=== PATIENT | female | born 1970 | race African-American/Black ===

== ENCOUNTER 2020-05-11 04:28 | Emergency (ER) | payer MEDICARE, OTHER ==
[~2020-05-11] VITALS: Ht 152.4 cm; Wt 77.0 kg
[2020-05-11 04:28] VITALS: BP 166/131
--- NOTE | 2020-05-11 04:53 | PHYS DOC ---
Past History Past Medical History: CHF, Hypertension, Renal Disease, Stroke, UTI Past Surgical History: No Surgical History Smoking: Non-smoker Alcohol Use: None Drug Use: None General Adult EDM: Chief Complaint: ABDOMINAL PAIN HPI: HPI: 49-year-old female presents with 1 week history of dysuria. Patient currently being treated by PCP for urinary tract infection. Patient believes medication she is currently on is Cipro. Reports now with suprapubic pain. Patient does report some pain to right flank. Denies trauma. Denies rash. Denies nausea or vomiting. Patient reports awaking this morning feeling worse and therefore presents to the ER. Review of Systems: Review of Systems: Constitutional: Reports fever and chills Eyes: Denies redness or eye pain HENT: Denies nasal congestion or sore throat Respiratory: Denies cough or shortness of breath Cardiovascular: Denies chest pain or palpitations GI: Reports suprapubic pain; denies nausea or vomiting : Reports dysuria; denies hematuria Musculoskeletal: Reports right flank pain; denies joint pain Integument: Denies rash or skin lesions Neurologic: Denies headache, focal weakness or sensory changes Complete systems were reviewed and found to be within normal limits, except as documented in this note. Current Medications: Current Meds: Current Medications Medications (Trade) Dose Ordered Sig/[facility] Start Time Stop Time Status Last Admin Dose Admin Acetaminophen (Tylenol) 500 mg 1X ONCE 05/11/20 04:45 05/11/20 04:46 UNV Sodium Chloride 1,000 ml @ 1,000 mls/hr 1X ONCE 05/11/20 04:45 05/11/20 05:44 UNV Physical Exam: PE: Constitutional: Well developed, well nourished, no acute distress, non-toxic appearance HENT: Normocephalic, atraumatic Eyes: Conjunctiva normal, no discharge Neck: Normal range of motion, supple, no meningeal signs Cardiovascular: Tachycardia, peripheral pulses intact Lungs & Thorax: No respiratory distress, equal chest rise and fall, tachypnea Abdomen: Soft, mild suprapubic tenderness, no guarding/rebound tenderness/distention Skin: Warm, dry, no erythema, no rash Back: No tenderness, no CVA tenderness Extremities: No tenderness, ROM intact, no edema Neurologic: Alert and oriented X 3, no focal deficits noted Psychologic: Affect normal, judgment normal Current Patient Data: Vital Signs: Vital Signs Date Time Temp Pulse Resp B/P (MAP) Pulse Ox O2 Delivery O2 Flow Rate FiO2 05/11/20 04:28 100.9 125 26 166/131 (143) 98 Room Air EKG: EKG: [] Radiology/Procedures: Radiology/Procedures: PROCEDURE: CT ABDOMEN PELVIS WO CONTRAST CT scan of the abdomen and pelvis without contrast 05/11/2020 CLINICAL HISTORY: Right flank pain. TECHNIQUE: Unenhanced, contiguous, 3 mm axial sections were obtained through the abdomen and pelvis. One or more of the following individualized dose reduction techniques were utilized for this study: 1. Automated exposure control. 2. Adjustment of the mA and/or kV according to patient size. 3. Use of iterative reconstruction technique. FINDINGS: Images through the lung bases demonstrate minimal dependent subsegmental atelectasis bilaterally. There is mild to moderate cardiomegaly. A small pericardial effusion is seen. The liver, spleen, pancreas, and adrenal glands are within normal limits. A 3 mm nonobstructing calculus is seen involving the lower pole of the left kidney. No focal abnormality of the right kidney is seen. No ureteral calculus is noted. There is no evidence of obstruction of either collecting system. Atherosclerotic calcification abdominal aorta and its branches is seen. The abdominal aorta tapers normally. A moderate amount stool seen throughout the colon. The appendix is well-visualized and is within normal limits. Images through the pelvis demonstrate the urinary bladder distended with urine. A rounded mass projects from the posterior aspect of the body/fundus of the uterus. This measures 4.6 cm in size. It likely represents a fibroid. Calcifications are seen within the pelvis consistent with phleboliths. No adnexal mass is noted. No free fluid is seen. Minimal S-shaped curvature of the thoracolumbar spine is seen. IMPRESSION: No acute abnormality is seen. Electronically signed by: Wander Vincent MD (05/11/2020 6:18 AM) [id number] Course & Med Decision Making: Course & Med Decision Making Pertinent Lab studies reviewed. (See chart for details) Patient presents with HPI and physical exam concerning for acute pyelonephritis. Tachycardia, tachypnea, and fever noted. SIRS criteria met. Fever addressed. IV fluid hydration provided. Labs obtained and posted to chart. UA with signs of infection vs contamination. Given patient's symptoms empiric antibiotic initiated. Symptomatic treatment also provided with pyridium. WBC and lactic acid WNL. CT abd/pelvis without acute process. Patient stable for discharge with outpatient follow-up with PCP. Discussed findings and plan with patient, who acknowledges understanding and agreement. Yessica Disclaimer: Yessica Disclaimer: This electronic medical record was generated, in whole or in part, using a voice recognition dictation system. Departure Departure: Impression: Primary Impression: Pyelonephritis Additional Impression: Fever Qualified Codes: R50.9 - Fever, unspecified Disposition: HOME/RESIDENCE PRIOR TO ADM Condition: STABLE Referrals: RYAN JAMISON MD (PCP) Patient Instructions: Fever, Adult, [id number], Pyelonephritis, Adult, [id number] Additional Instructions: Please discontinue previously prescribed antibiotic. Scripts Cephalexin (KEFLEX) 500 Mg Capsule 1 CAP PO TID for UTI for 7 Days, #21 CAP 0 Refills Prov: JACKLYN ONEILL DO 05/11/20 Phenazopyridine Hcl (PYRIDIUM) 200 Mg Tablet 200 MG PO Q8HRS for urinary tract infection, #6 TAB Prov: JACKLYN ONEILL DO 05/11/20 Justification of Admission: Justification of Admission: Justification of Admission Dx: N/A JACKLYN ONEILL DO May 11, 2020 04:53
[2020-05-11 04:55] LABS: BASO % 0 % (0-3); EOS # 0.6 x10^3/uL (0.0-0.7); EOS % 8 % (0-3); HEMATOCRIT 38.6 % (36.0-47.0); HEMOGLOBIN 13.1 g/dL (12.0-15.5); LYMPH # 0.9 x10^3/uL (1.0-4.8); LYMPH % 12 % (24-48); MEAN CORPUSCULAR HEMOGLOBIN 28 pg (25-35); MEAN CORPUSCULAR HGB CONC 34 g/dL (31-37); MEAN CORPUSCULAR VOLUME 83 fL (79-100); MONO # 0.9 x10^3/uL (0.0-1.1); MONO % 12 % (0-9); NEUT # 5.5 x10^3uL (1.8-7.7); NEUT % 69 % (31-73); PLATELET COUNT 315 x10^3/uL (140-400); RED BLOOD COUNT 4.63 x10^6/uL (3.50-5.40); RED CELL DISTRIBUTION WIDTH 15.7 % (11.5-14.5)
[2020-05-11 04:59] LABS: BACTERIA,URINE MOD /HPF (0-FEW); BILIRUBIN,URINE NEG (NEG); CLARITY,URINE HAZY; COLOR,URINE YELLOW; GLUCOSE,URINE NEG (NEG); NITRITE,URINE NEG (NEG); SQUAMOUS EPITHELIAL CELL,UR MOD /LPF; UROBILINOGEN,URINE 0.2 mg/dL (0.2 mg/dL)
[2020-05-11 05:00] LABS: CALCIUM 8.9 mg/dL (8.5-10.1); CREATININE 1.7 mg/dL (0.6-1.0); GFR 31.9; POTASSIUM 3.9 mmol/L (3.5-5.1)
[2020-05-11 05:00] LABS: RBC,URINE OCC /HPF (0-2)
[2020-05-11] MEDS ORDERED: IV NORMAL SALINE 1,000ML 1,000 ML IV ONE (05:00)
[2020-05-11] MEDS ORDERED: ACETAMINOPHEN 500 MG TABLET PO ONE (05:00)
[2020-05-11 05:06] LABS: ALBUMIN 3.5 g/dL (3.4-5.0); ALBUMIN/GLOBULIN RATIO 0.8 (1.0-1.7); MAGNESIUM 1.8 mg/dL (1.8-2.4); TOTAL BILIRUBIN 0.5 mg/dL (0.2-1.0); TOTAL PROTEIN 7.9 g/dL (6.4-8.2)
[2020-05-11] MEDS ORDERED: CEPH-264 PO (05:11)
[2020-05-11] MEDS ORDERED: PHEN-318 PO (05:11)
[2020-05-11] MEDS ORDERED: PHENAZOPYRIDINE 200 MG TABLET. PO ONE (05:30)
--- NOTE | 2020-05-11 06:21 | RAD ---
CT scan of the abdomen and pelvis without contrast 05/11/2020 CLINICAL HISTORY: Right flank pain. TECHNIQUE: Unenhanced, contiguous, 3 mm axial sections were obtained through the abdomen and pelvis. One or more of the following individualized dose reduction techniques were utilized for this study: 1. Automated exposure control. 2. Adjustment of the mA and/or kV according to patient size. 3. Use of iterative reconstruction technique. FINDINGS: Images through the lung bases demonstrate minimal dependent subsegmental atelectasis bilaterally. There is mild to moderate cardiomegaly. A small pericardial effusion is seen. The liver, spleen, pancreas, and adrenal glands are within normal limits. A 3 mm nonobstructing calculus is seen involving the lower pole of the left kidney. No focal abnormality of the right kidney is seen. No ureteral calculus is noted. There is no evidence of obstruction of either collecting system. Atherosclerotic calcification abdominal aorta and its branches is seen. The abdominal aorta tapers normally. A moderate amount stool seen throughout the colon. The appendix is well-visualized and is within normal limits. Images through the pelvis demonstrate the urinary bladder distended with urine. A rounded mass projects from the posterior aspect of the body/fundus of the uterus. This measures 4.6 cm in size. It likely represents a fibroid. Calcifications are seen within the pelvis consistent with phleboliths. No adnexal mass is noted. No free fluid is seen. Minimal S-shaped curvature of the thoracolumbar spine is seen. IMPRESSION: No acute abnormality is seen. Electronically signed by: Wander Vincent MD (05/11/2020 6:18 AM) [id number]
== END 2020-05-11 06:59 | disposition home or self-care (01) ==
LOC: ER 04:28
DX: N12 Tubulo-interstitial nephritis, not specified as acute or chronic (principal); I11.0 Hypertensive heart disease with heart failure; I50.9 Heart failure, unspecified; Z87.440 Personal history of urinary (tract) infections; Z86.73 Personal history of transient ischemic attack (TIA), and cerebral infarction without residual deficits
CPT/HCPCS: 36415; 74176; 80053; 81001; 83605; 83690; 83735; 84702; 85025; 85610; 85730; 96365; 99284; J0696; J7030; 99285-25

== ENCOUNTER 2021-02-13 12:49 | Emergency (ER) | payer MEDICAID, MEDICARE, OTHER ==
[~2021-02-13] VITALS: Ht 152.4 cm; Wt 90.7 kg
[~2021-02-13 12:49] MED LIST: CEPH-264 PO; PHEN-318 PO
--- NOTE | 2021-02-13 13:33 | PHYS DOC ---
Past History Past Medical History: CHF, CVA, High Cholesterol, Hypertension, Renal Disease, Stroke, UTI Past Surgical History: No Surgical History Smoking: Non-smoker Alcohol Use: None Drug Use: None General Adult EDM: Chief Complaint: SHORTNESS OF BREATH HPI: HPI: 50-year-old female presents with shortness of breath. The patient has been having worsening shortness of breath for the last couple of days. In fact she has been having intermittent chest pains and shortness of breath for several weeks, but worse the last 2 days. She denies chest pain at this time. Her shortness of breath is worse with exertion. No history of lung problems. She is not a smoker. Denies fever or chills. She has a history of previous strokes and diagnosis of CHF. She also has diabetes and high blood pressure. Negative COVID-19 test in November, but has not been vaccinated. Review of Systems: Review of Systems: Constitutional: Denies fever or chills Eyes: Denies change in visual acuity HENT: Denies nasal congestion or sore throat Respiratory: Intermittent cough with shortness of breath Cardiovascular: Denies chest pain or edema GI: Denies abdominal pain, nausea, vomiting, bloody stools or diarrhea : Denies dysuria Musculoskeletal: Denies back pain or joint pain Integument: Denies rash Neurologic: Denies headache, focal weakness or sensory changes Endocrine: Denies polyuria or polydipsia Lymphatic: Denies swollen glands Psychiatric: Denies depression or anxiety Allergies: Allergies: Allergies Coded Allergies Type Severity Reaction Last Updated Verified lisinopril Allergy Severe 05/11/20 Yes Physical Exam: PE: Constitutional: Well developed, well nourished, morbidly obese, mild acute distress, non-toxic appearance. [] HENT: Normocephalic, atraumatic, bilateral external ears normal, oropharynx moist, no oral exudates, nose normal. [] Eyes: PERRLA, EOMI, conjunctiva normal, no discharge. [] Neck: Normal range of motion, no tenderness, supple, no stridor. [] Cardiovascular: Heart rate 96, regular rhythm, no murmur [] Lungs & Thorax: Bilateral breath sounds clear to auscultation [] Abdomen: Bowel sounds normal, soft, no tenderness, no masses, no pulsatile masses. [] Skin: Warm, dry, no erythema, no rash. [] Back: No tenderness, no CVA tenderness. [] Extremities: No tenderness, no cyanosis, no clubbing, ROM intact, no edema. [] Neurologic: Alert and oriented X 3, normal motor function, normal sensory function, no focal deficits noted. [] Psychologic: Affect normal, judgement normal, mood normal. [] Current Patient Data: Vital Signs: Vital Signs Date Time Temp Pulse Resp B/P (MAP) Pulse Ox O2 Delivery O2 Flow Rate FiO2 02/13/21 13:04 97.9 96 28 176/110 (132) 96 Room Air EKG: EKG: Sinus rhythm, rate 96, normal axis, no ST elevations or depression, poor R wave progression. [] Radiology/Procedures: Radiology/Procedures: [] Impressions: Single AP view of the chest. Comparison: None. Indication: Shortness of breath Findings: The heart is enlarged. There is no pneumothorax or effusion. Mild interstitial opacities particularly at the lung bases are identified. Impression: 1. Peripheral interstitial opacities are identified with cardiomegaly. Findings suggest CHF or atypical infection. Electronically signed by: Casey Will MD (02/13/2021 1:49 PM) [id number] DICTATED AND SIGNED BY: CASEY WILL MD DATE: 02/13/21 1348 CC: PEYTON ROPER DO; RYAN JAMISON MD ~MTH0 0 Heart Score: C/O Chest Pain: Yes HEART Score for Chest Pain: HEART Score for Chest Pain Response (Comments) Value History Moderately Suspicious 1 ECG Nonspecific Repolarizatio 1 Age >45 - < 65 1 Risk Factors >3 Risk Factors or Hx CAD 2 Troponin >3 x Normal Limit 2 Total 7 Risk Factors: Risk Factors: DM, Current or recent (<one month) smoker, HTN, HLP, family history of CAD, obesity. Risk Scores: Score 0 - 3: 2.5% MACE over next 6 weeks - Discharge Home Score 4 - 6: 20.3% MACE over next 6 weeks - Admit for Clinical Observation Score 7 - 10: 72.7% MACE over next 6 weeks - Early Invasive Strategies Course & Med Decision Making: Course & Med Decision Making Pertinent Labs and Imaging studies reviewed. (See chart for details) Patient has an elevated BUN and creatinine. See labs for more details. Her troponin is 0.206. Her EKG does not show ST elevations. Her chest x-ray is suggestive of CHF. See official read for more details. Patient appears to be having an NSTEMI. I talked with Regi, per the cardiology team and she is advised 100 mg of Lovenox and transferred to [facility]. The patient is in agreement with transfer to [place]. I spoke with Dr. Peck, the hospitalist and he has accepted the patient for transfer. The patient will go by ambulance. 32 minutes of critical care time was spent on this patient exclusive of other billable procedures. [] Dragon Disclaimer: Dragon Disclaimer: This electronic medical record was generated, in whole or in part, using a voice recognition dictation system. Departure Departure: Impression: Primary Impression: NSTEMI (non-ST elevated myocardial infarction) Additional Impression: CHF (congestive heart failure) Qualified Codes: I50.23 - Acute on chronic systolic (congestive) heart failure Disposition: 02 SHORT TERM HOSPITAL Referrals: RYAN JAMISON MD (PCP) PEYTON ROPER DO Feb 13, 2021 13:33
[2021-02-13 13:48] LABS: CALCIUM 9.4 mg/dL (8.5-10.1); CREATININE 1.3 mg/dL (0.6-1.0); GFR 52.5; POTASSIUM 4.1 mmol/L (3.5-5.1)
[2021-02-13 13:49] LABS: BASO # 0.2 x10^3/uL (0.0-0.2); BASO % 3 % (0-3); EOS # 0.2 x10^3/uL (0.0-0.7); EOS % 3 % (0-3); HEMATOCRIT 36.8 % (36.0-47.0); HEMOGLOBIN 12.3 g/dL (12.0-15.5); LYMPH # 2.6 x10^3/uL (1.0-4.8); LYMPH % 33 % (24-48); MEAN CORPUSCULAR HEMOGLOBIN 28 pg (25-35); MEAN CORPUSCULAR HGB CONC 33 g/dL (31-37); MEAN CORPUSCULAR VOLUME 84 fL (79-100); MONO # 0.4 x10^3/uL (0.0-1.1); MONO % 6 % (0-9); NEUT # 4.3 x10^3uL (1.8-7.7); NEUT % 55 % (31-73); PLATELET COUNT 290 x10^3/uL (140-400); RED BLOOD COUNT 4.41 x10^6/uL (3.50-5.40); RED CELL DISTRIBUTION WIDTH 15.8 % (11.5-14.5); WHITE BLOOD COUNT 7.8 x10^3/uL (4.0-11.0)
--- NOTE | 2021-02-13 13:51 | RAD ---
Single AP view of the chest. Comparison: None. Indication: Shortness of breath Findings: The heart is enlarged. There is no pneumothorax or effusion. Mild interstitial opacities particularl y at the lung bases are identified. Impression: 1. Peripheral interstitial opacities are identified with cardiomegaly. Findings suggest CHF or atypic al infection. Electronically signed by: Casey Will MD (02/13/2021 1:49 PM) [id number]
[2021-02-13 14:00] LABS: ALBUMIN 3.3 g/dL (3.4-5.0); ALBUMIN/GLOBULIN RATIO 0.8 (1.0-1.7); TOTAL BILIRUBIN 0.5 mg/dL (0.2-1.0); TOTAL PROTEIN 7.6 g/dL (6.4-8.2)
[2021-02-13] MEDS ORDERED: ASPIRIN CHEWABLE 81 MG TABLET. PO ONE (14:15)
[2021-02-13] MEDS ORDERED: ENOXAPARIN ** NOTE DOSE ** SYRINGE SQ ONE (14:30)
[2021-02-13 14:50] LABS: BACTERIA,URINE 0 /HPF (0-FEW); BILIRUBIN,URINE NEG (NEG); CLARITY,URINE CLEAR; COLOR,URINE YELLOW; GLUCOSE,URINE NEG (NEG); NITRITE,URINE NEG (NEG)
[2021-02-13 14:51] LABS: SQUAMOUS EPITHELIAL CELL,UR MOD /LPF
--- NOTE | 2021-02-13 15:17 | EKG ---
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
[2021-02-13 17:28] VITALS: BP 168/96
== END 2021-02-13 17:56 | disposition short-term general hospital (02) ==
LOC: ER 12:49 → EEVIPCON 12:49 → ER 17:56
DX: I21.4 Non-ST elevation (NSTEMI) myocardial infarction (principal); I10 Essential (primary) hypertension; I50.23 Acute on chronic systolic (congestive) heart failure; E78.00 Pure hypercholesterolemia, unspecified; Z87.440 Personal history of urinary (tract) infections; Z86.73 Personal history of transient ischemic attack (TIA), and cerebral infarction without residual deficits; Z88.8 Allergy status to other drugs, medicaments and biological substances
CPT/HCPCS: 36415; 71045; 80053; 81001; 83880; 84484; 85025; 87086; 93005; 96372; 99291; J1650

== ENCOUNTER 2021-09-23 16:20 | Emergency (ER) | payer MEDICARE ==
[~2021-09-23] VITALS: Ht 152.4 cm; Wt 72.2 kg
--- NOTE | 2021-09-23 16:37 | RAD ---
EXAMINATION: CT head without IV contrast INDICATION:51 years, Female, altered mental status. COMPARISON: None TECHNIQUE: Spiral acquisition of contiguous images from the skull base to the vertex were obtained. S agittal and coronal 2D reformatted series were provided by the technologist. Soft tissue and bone win kemi algorithms were reviewed. Exposure: One or more of the following individualized dose reduction techniques were utilized for thi s examination: 1. Automated exposure control 2. Adjustment of the mA and/or kV according to patient size 3. Use of iterative reconstruction technique. FINDINGS: No midline shift, intracranial hemorrhage, acute/subacute ischemic changes, nor extraaxial fluid zohra ections are seen. The brain parenchyma is normal in appearance. The ventricles are normal in size. The paranasal sinuses, mastoid air cells, and middle ears are clear. The orbital contents appear within normal limits. IMPRESSION: No evidence of acute intracranial abnormality. These findings were discussed with Dr. Campbell at 09/23/2021 4:[address] De Luna Electronically signed by: Lion De Luna DO (09/23/2021 4:35 PM) [facility]
--- NOTE | 2021-09-23 16:37 | PHYS DOC ---
Past History Past Medical History: CHF, CVA, High Cholesterol, Hypertension, Renal Disease, Stroke, UTI (ANNA MARIE ANAND MD) Past Surgical History: No Surgical History (ANNA MARIE ANAND MD) Smoking: Non-smoker Alcohol Use: None Drug Use: None (ANNA MARIE ANAND MD) General Adult EDM: Chief Complaint: NEURO SYMPTOMS/DEFICITS HPI: HPI: Patient is a 51-year-old female brought in by EMS from the [place]. Patient was found down on the ground with altered level of consciousness and an O2 sat of 84 patient states she has been feeling unwell for the last 3 days with symptoms of chest cough, vomiting, diarrhea.. Siblings state that they had not seen her in the past 2 weeks. Patient is not vaccinated against Covid. Per chart review patient has a history of compensated CHF with an EF of 40 to 45%, CVA, CAD status post 1 stent 5 months ago, and diabetes. patient was transferred to [place] for NSTEMI had 1 stent placed, was discharged with Plavix. Patient states that she has been compliant on her medications. Has not had her Covid nor influenza vaccine (ANNA MARIE ANAND MD) Review of Systems: Review of Systems: All other systems within normal limits except for as noted in the HPI (ANNA MARIE ANAND MD) Allergies: Allergies: Allergies Coded Allergies Type Severity Reaction Last Updated Verified lisinopril Allergy Severe 05/11/20 Yes (ANNA MARIE ANAND MD) Physical Exam: PE: Constitutional: Well developed, well nourished, no acute distress, non-toxic appearance. [] HENT: Normocephalic, atraumatic, bilateral external ears normal, nose normal. [] Eyes: PERRLA, conjunctiva normal, no discharge. [] Neck: No rigidity, supple, no stridor. [] Cardiovascular: Tachycardic, regular rhythm, brisk cap refill. Bedside ultrasound shows no pericardial effusion, plethoric IVC [] Lungs & Thorax: Non labored symmetric respirations, no tachypnea or respiratory distress [] Abdomen: Soft, nondistended. Skin: Warm, dry, no erythema, no rash. [] Back: Unremarkable Extremities: No deformities, range of motion grossly intact, no lower extremity edema [] Neurologic: Alert and oriented X 3, no focal deficits noted. [] Psychologic: Affect normal, judgement normal, mood normal. [] (ANNA MARIE ANAND MD) EKG: EKG: Sinus tachycardia, heart rate 119 bpm, normal axis, prolonged QT, no isolation depression, no ectopy. [] (ANNA MARIE ANAND MD) Radiology/Procedures: Radiology/Procedures: [place] [address] IMAGING REPORT Signed PATIENT: OLI ALTMAN ACCOUNT: [id number] : 1970 LOCATION: ER AGE: 51 SEX: F EXAM STATUS: REG ER ORD. PHYSICIAN: ANNA MARIE ANAND MD REASON: hypoxic PROCEDURE: CHEST AP ONLY EXAMINATION: Chest radiograph. VIEWS: Single AP view of the chest COMPARISON: 02/13/2021 INDICATION:51 years, Female, hypoxic. FINDINGS: Heart is enlarged, increased from prior . Increased interstitial and the airspace opacities predominantly at the lung bases. The left costophrenic angle is obscured. There is no right pleural effusion. No pneumothorax. No acute osseous process. IMPRESSION: Worsening cardiomegaly with increased interstitial and basilar opacities suggestive of CHF or atypical infection. Electronically signed by: Pankaj De Luna DO (09/23/2021 5:28 PM) [facility] DICTATED AND SIGNED BY: PANKAJ DE LUNA DO DATE: 09/23/21 1725 CC: ANNA MARIE ANAND MD; RYAN JAMISON MD ~MTH0 0 [][address] [address] IMAGING REPORT Signed PATIENT: OLI ALTMAN ACCOUNT: [id number] : 1970 LOCATION: ER AGE: 51 SEX: F EXAM STATUS: PRE ER ORD. PHYSICIAN: ANNA MARIE ANAND MD REASON: ams PROCEDURE: CT CODE STROKE HEAD WO EXAMINATION: CT head without IV contrast INDICATION:51 years, Female, altered mental status. COMPARISON: None TECHNIQUE: Spiral acquisition of contiguous images from the skull base to the vertex were obtained. Sagittal and coronal 2D reformatted series were provided by the technologist. Soft tissue and bone window algorithms were reviewed. Exposure: One or more of the following individualized dose reduction techniques were utilized for this examination: 1. Automated exposure control 2. Adjustment of the mA and/or kV according to patient size 3. Use of iterative reconstruction technique. FINDINGS: No midline shift, intracranial hemorrhage, acute/subacute ischemic changes, nor extraaxial fluid collections are seen. The brain parenchyma is normal in appearance. The ventricles are normal in size. The paranasal sinuses, mastoid air cells, and middle ears are clear. The orbital contents appear within normal limits. IMPRESSION: No evidence of acute intracranial abnormality. These findings were discussed with Dr. Anand at 09/23/2021 4:[address] De Luna Electronically signed by: Pankaj De Luna DO (09/23/2021 4:35 PM) [facility] DICTATED AND SIGNED BY: PANKAJ DE LUNA DO DATE: 09/23/21 1632 CC: ANNA MARIE ANAND MD; RYAN JAMISON MD ~MTH0 0 (ANNA MARIE ANAND MD) Heart Score: C/O Chest Pain: No HEART Score for Chest Pain: HEART Score for Chest Pain Response (Comments) Value History Slighlty/Non-Suspicious 0 Age >45 - < 65 1 Risk Factors >3 Risk Factors or Hx CAD 2 Total 3 Risk Factors: Risk Factors: DM, Current or recent (<one month) smoker, HTN, HLP, family history of CAD, obesity. Risk Scores: Score 0 - 3: 2.5% MACE over next 6 weeks - Discharge Home Score 4 - 6: 20.3% MACE over next 6 weeks - Admit for Clinical Observation Score 7 - 10: 72.7% MACE over next 6 weeks - Early Invasive Strategies (ANNA MARIE ANAND MD) Course & Med Decision Making: Course & Med Decision Making Pertinent Labs and Imaging studies reviewed. (See chart for details) Patient has hypertensive emergency with worsening cardiomegaly and pulmonary edema versus atypical infection. Given aspirin for elevated troponin and will trend. Bedside ultrasound shows no pericardial effusion. Patient care transitioned at shift change pending bed assignment at [facility] [place]. Report given to Jasmin norris nurse practitioner with the medicine team and excepting physician Dr. Ahumada. [] (ANNA MARIE ANAND MD) Course & Med Decision Making Patient care handed off to me at checkout pending transfer to [facility] [place]. Tang eller's clinical picture significantly improved with high-dose nitroglycerin with respiratory rate, heart rate and blood pressure improving. Discussed all findings with patient who agreed with plan of transfer and admission to [facility] [place] for hypertensive emergency with probable decompensated heart failure, MELISSA and slightly elevated troponin. (RAJNI SOMMERS MD) Dragon Disclaimer: Dragon Disclaimer: This electronic medical record was generated, in whole or in part, using a voice recognition dictation system. (ANNA MARIE ANAND MD) Departure Departure: Impression: Primary Impression: Demand ischemia Additional Impressions: Person under investigation for COVID-19 Pleural effusion Hypertensive emergency CHF exacerbation MELISSA (acute kidney injury) Disposition: 02 SHORT TERM HOSPITAL Condition: STABLE Referrals: RYAN JAMISON MD (PCP) ANNA MARIE ANAND MD Sep 23, 2021 16:37 RAJNI SOMMERS MD Sep 23, 2021 19:54
[2021-09-23 17:15] LABS: BASO # 0.1 x10^3/uL (0.0-0.2); BASO % 1 % (0-3); EOS # 0.2 x10^3/uL (0.0-0.7); EOS % 2 % (0-3); HEMATOCRIT 46.9 % (36.0-47.0); LYMPH # 2.5 x10^3/uL (1.0-4.8); LYMPH % 29 % (24-48); MEAN CORPUSCULAR HEMOGLOBIN 27 pg (25-35); MEAN CORPUSCULAR HGB CONC 32 g/dL (31-37); MEAN CORPUSCULAR VOLUME 85 fL (79-100); MONO # 0.6 x10^3/uL (0.0-1.1); MONO % 7 % (0-9); NEUT # 5.2 x10^3uL (1.8-7.7); NEUT % 60 % (31-73); PLATELET COUNT 275 x10^3/uL (140-400); RED BLOOD COUNT 5.54 x10^6/uL (3.50-5.40); RED CELL DISTRIBUTION WIDTH 16.7 % (11.5-14.5); WHITE BLOOD COUNT 8.6 x10^3/uL (4.0-11.0)
[2021-09-23 17:20] LABS: CREATININE 2.5 mg/dL (0.6-1.0); GFR 24.6
[2021-09-23 17:24] LABS: INFLUENZA A PATIENT NEGATIVE (NEGATIVE); INFLUENZA B PATIENT NEGATIVE (NEGATIVE)
--- NOTE | 2021-09-23 17:27 | EKG ---
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
[2021-09-23] MEDS ORDERED: hydrALAZINE 20 MG/ML VIAL. IV ONE (17:30)
--- NOTE | 2021-09-23 17:31 | RAD ---
EXAMINATION: Chest radiograph. VIEWS: Single AP view of the chest COMPARISON: 02/13/2021 INDICATION:51 years, Female, hypoxic. FINDINGS: Heart is enlarged, increased from prior . Increased interstitial and the airspace opacities predomina ntly at the lung bases. The left costophrenic angle is obscured. There is no right pleural effusion. No pneumothorax. No acute osseous process. IMPRESSION: Worsening cardiomegaly with increased interstitial and basilar opacities suggestive of CHF or atypica l infection. Electronically signed by: Lion De Luna DO (09/23/2021 5:28 PM) [facility]
[2021-09-23 17:34] LABS: ALBUMIN 3.3 g/dL (3.4-5.0); ALBUMIN/GLOBULIN RATIO 0.8 (1.0-1.7); MAGNESIUM 2.6 mg/dL (1.8-2.4); PHOSPHORUS 4.3 mg/dL (2.6-4.7); TOTAL PROTEIN 7.6 g/dL (6.4-8.2)
[2021-09-23] MEDS ORDERED: NITROGLYCERIN PREMIX 250 ML IV ONE (17:45)
[2021-09-23] MEDS ORDERED: NITROGLYCERIN SUBLINGUAL 0.4 MG BOTTLE OF 25. SL PRN (17:45)
[2021-09-23] MEDS ORDERED: ASPIRIN CHEWABLE 81 MG TABLET. PO ONE (18:00)
[2021-09-23] MEDS ORDERED: POTASSIUM CHLORIDE 20 MEQ TABLET.ER. PO ONE (18:30)
[2021-09-23 18:34] LABS: BARBITURATES NEG (NEG); BENZODIAZEPINES NEG (NEG); CANNABINOIDS NEG (NEG); COCAINE NEG (NEG); METHADONE NEG (NEG); OPIATES NEG (NEG); PHENCYCLIDINE NEG (NEG)
[2021-09-23 18:35] LABS: BILIRUBIN,URINE LARGE (NEG); CLARITY,URINE HAZY; COLOR,URINE AMBER; GLUCOSE,URINE NEG (NEG); NITRITE,URINE NEG (NEG)
[2021-09-23 18:36] LABS: BACTERIA,URINE FEW /HPF (0-FEW); SQUAMOUS EPITHELIAL CELL,UR MANY /LPF
[2021-09-23 18:37] LABS: AMPHETAMINE/METHAMPHETAMINE NEG (NEG)
[2021-09-23 18:43] LABS: U PREG PATIENT NEGATIVE (NEG)
--- NOTE | 2021-09-23 19:31 | RAD ---
Exam: CT of chest without contrast INDICATION: Shortness of breath TECHNIQUE: Sequential axial images through the chest obtained without IV contrast. Sagittal and coron al reformatted images were reconstructed from the axial data and reviewed. Exposure: One or more of the following in the visualized dose reduction techniques were utilized for this examination: 1. Automated exposure control 2. Adjustment of the MA and/or KV according to patient size 3. Use of iterative of reconstructive technique Comparisons: Chest x-ray same day FINDINGS: Visual is portions of the thyroid are unremarkable. No enlargement is not lymph nodes. Heart is enlarged. There is a moderate-sized simple appearing pericardial effusion. Moderate coronary artery calcium lesions noted. Thoracic aorta has a normal course and caliber. Pulmonary artery is no t enlarged. Airways are patent. Bandlike opacity at the left lung base. No consolidation or pneumothorax. No pleural effusion or thickening. Visualized upper abdomen is unremarkable. No suspicious osseous lesions or acute fractures. IMPRESSION: 1. Cardiomegaly with a moderate-sized pericardial effusion. 2. Bandlike opacity at the left lung base likely representing atelectasis. Electronically signed by: Maria Del Carmen Burrows MD (09/23/2021 7:28 PM) [facility]
[2021-09-23 19:51] VITALS: BP 190/134
== END 2021-09-23 19:50 | disposition short-term general hospital (02) ==
LOC: ER 16:20
DX: N17.9 Acute kidney failure, unspecified (principal); I24.8 Other forms of acute ischemic heart disease; J90 Pleural effusion, not elsewhere classified; I16.1 Hypertensive emergency; I11.0 Hypertensive heart disease with heart failure; I50.9 Heart failure, unspecified; E78.00 Pure hypercholesterolemia, unspecified; Z20.822 Contact with and (suspected) exposure to COVID-19; Z86.73 Personal history of transient ischemic attack (TIA), and cerebral infarction without residual deficits; Z87.440 Personal history of urinary (tract) infections; Z88.8 Allergy status to other drugs, medicaments and biological substances
CPT/HCPCS: 70450; 71045; 71250; 80053; 80307; 81001; 81025; 82550; 82803; 82947; 83605; 83735; 83874; 83880; 84100; 84484; 85025; 85379; 85610; 87040; 87426; 87804; 93005; 96365; 96366; 99285; C9803; G0480; J3490; U0003